=== PATIENT | male | born 1970 | race Caucasian/White ===

== ENCOUNTER 2016-07-31 08:05 | Emergency (ER) | payer OTHER ==
--- NOTE | ~2016-07-31 | ER ---
PATIENT'S NAME: [facility]ANCHO [facility] AGE: 46 Y [address] ROOM: [place] [address] LOCATION: [facility] ADMIT DATE: 07/31/2016 ER/Outpatient Report DISCHARGE DATE: 07/31/2016 FAMILY PHYSICIAN: PHYSICIAN, NO ATTENDING PHYSICIAN: Ayleen Terry TIME OF ARRIVAL: 08:05. TIME SEEN: 08:15. IDENTIFICATION: A 46-year-old male. CHIEF COMPLAINT: Back pain. HISTORY OF PRESENT ILLNESS: The patient came in from a local motel by ambulance with back pain. Onset on Thursday when he was lifting and turning and felt a pop. 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 He describes the pain as shooting pain from his right buttock down his posterior leg. No numbness or tingling. No weakness. No bowel or bladder problems. No fever or chills. He had a similar episode in the past, treated with anti-inflammatories that resolved. PAST MEDICAL HISTORY: ALLERGIES: NO KNOWN DRUG ALLERGIES. CURRENT MEDICATIONS: 1. Muscle relaxer, cyclobenzaprine 5 mg. 2. Atorvastatin. MEDICAL PROBLEMS: Hyperlipidemia and sciatic on the right side. PRIOR SURGERIES: Denies. SOCIAL HISTORY: PATIENT'S NAME: JUANCHO [facility] AGE: 46 Y [address] 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 He is . Tobacco use, denies. Alcohol use, 3 to 4 nights a week 1 to 2 drinks. Drug use, denies. FAMILY HISTORY: No pertinent family history identified. REVIEW OF SYSTEMS: All systems reviewed and negative other than what is noted in the HPI. The patient received fentanyl 100 mcg pre-hospital. Rates his pain at rest at 2, with movement 8 or 9. PHYSICAL EXAMINATION: VITAL SIGNS: Pulse 91, respirations 20, temp 98, blood pressure 163/89, and sats 94% on room air. GENERAL: A 46-year-old male, in mild distress. HEENT: Unremarkable. LUNGS: Clear to auscultation. HEART: Regular rate and rhythm. No murmur, rub, or gallop. ABDOMEN: Bowel sounds present. Soft and nondistended. SKIN: [place], warm, and dry. MUSCULOSKELETAL: The patient was lying prone as that was his position of comfort on the cot. He had pain radiating from his right buttock down. No tenderness to palpation in his lumbar spine. No reproducible tenderness to palpation. No weakness noted. Sensation is intact. Equivocal straight leg raise. INITIAL EXAM EMERGENCY DEPARTMENT COURSE: The patient was given prednisone 40 mg p.o., Valium 2 mg IV, and Toradol 30 mg IV. The patient's pain was minimally improved. MRI was obtained of the lumbar spine showing L5-S1 large right lateral broad-based disc herniation, compressing the exiting nerve root, and displacing the descending S1 nerve associated advanced facet arthropathy. L4-L5 shows a large broad-based left- sided disc herniation with compression of the exiting nerve root and displacement of the descending L5 nerve root. The patient was given an additional 2 mg of Valium, fentanyl 100 mcg here in the ER, and [place] 2 tablets. His family did arrive from [place] to pick him up. IMPRESSION AND PLAN: Lumbar disc disease with radiculopathy. The patient's vital signs remained stable. The patient's pain improved. He will be discharged home. Back pain handout. Prednisone taper 20 mg b.i.d. for 2 days, 30 mg daily for 2 days, 20 mg daily for 2 days, 10 mg daily for 2 days, 5 mg daily for 2 days. Ibuprofen 400 mg 4 times daily with food. [place] 5/325, 1 to 2 p.o. q.6 hours p.r.n. severe pain, dispensed 15 with 0 refills. Valium 2 mg 1/2 to 1 tablet q.8 PATIENT'S NAME: J[facility]ANCHO [facility] AGE: 46 Y [address] ROOM: [place] [address] LOCATION: ED ADMIT DATE: 07/31/2016 ER/Outpatient Report DISCHARGE DATE: 07/31/2016 FAMILY PHYSICIAN: PHYSICIAN, SEBASTIAN ATTENDING PHYSICIAN: Ayleen Terry p.rBerenicenBerenice spasm. No lifting. No work until followup with his primary care physician in [place]. The patient and his understand and agree, and all questions have been answered. AYLEEN TERRY MD CAR/modl /[id number] d: 07/31/16 2359 t: 08/03/16 0701, OUTPATIENT REPORT
== END 2016-07-31 14:44 | disposition disaster alternative care site (69) ==
LOC: GMED 08:05
DX: M51.16 Intervertebral disc disorders with radiculopathy, lumbar region (principal); M51.17 Intervertebral disc disorders with radiculopathy, lumbosacral region; E78.00 Pure hypercholesterolemia, unspecified; E78.5 Hyperlipidemia, unspecified; Z79.899 Other long term (current) drug therapy
CPT/HCPCS: J1885; J3010; J3360; J7512

== ENCOUNTER → 2016-07-31 | Outpatient (CLI) | payer OTHER | LOC: GAMB 07:41 | DX: M54.5 Low back pain (principal); Z79.899 Other long term (current) drug therapy | CPT/HCPCS: A0425; A0427 ==